=== PATIENT | female | born 1960 | race Caucasian/White ===

== ENCOUNTER → 2017-01-28 | Outpatient (CLI) | payer BC ==
[~2017-01-28] MED LIST: ASPIRINEC PO; CENTRUM PO
--- NOTE | ~2017-01-28 | MY29 ---
[facility] A Service [facility] RADIOLOGY TEXT RESULTS PATIENT: MEJIA VILLASEÑOR LOCATION: [facility] : 64 UNIT #: [id number] AGE: [address]: RAINER NESS APRN SEX: F ORDER DR: [id number] [facility] [address] [place], [place] [address] [id number] O MR#: [id number] Acc #: [id number] NAME: MEJIA VILLASEÑOR : 1960 SEX: F STUDY DATE/TIME: 01/28/2017 11:05 UNIT: [facility] ROOM: STUDY DESCRIPTION: MY [place] SCREENING W/ CAD BILAT Attending Physician: Rainer Ness Referring Physician: Rainer Ness Ordering Physician: Rainer Ness Aprn Primary Care Physician: Rainer Ness MEDICAL IMAGING REPORT This report is preliminary unless electronic signature is present EXAM Bilateral Digital Screening Mammogram with CAD INDICATION Breast cancer screening. A 56-year-old asymptomatic female who reports an aunt with postmenopausal breast cancer. COMPARISON 01/23/16, 10/16/14, 09/15/13, 08/19/12. FINDINGS The breasts are almost entirely fatty. No suspicious findings are present. IMPRESSION No mammographic evidence of malignancy. Annual screening mammography and clinical breast exam are recommended. A result letter will be sent to the patient. Patients over the age of 40 are entered into a reminder system with target due date for the next mammogram. BIRADS: 1 Negative Dictated by... Mauro Feldman M.D. THIS IS AN ELECTRONICALLY VERIFIED REPORT Mauro Feldman M.D. at 01/31/2017 10:28 AM BLM/perlita [facility] A Service [facility] RADIOLOGY TEXT RESULTS PATIENT: MEJIA VILLASEÑOR LOCATION: [facility] : 64 UNIT #: [id number] AGE: [address]: RAINER NESS APRN SEX: F ORDER DR: TD: 01/28/2017 14:08 JOB #: [id number] MEDICAL IMAGING REPORT Page 1 of 1 COPY
== END | disposition home or self-care (01) ==
LOC: CWCC 10:32
DX: Z12.31 Encounter for screening mammogram for malignant neoplasm of breast (principal); Z80.3 Family history of malignant neoplasm of breast
CPT/HCPCS: G0202